=== PATIENT | female | born 1980 | race Two or more races ===

== ENCOUNTER 2019-07-09 08:50 | Outpatient (CLI) | payer BC ==
[2019-07-09] MEDS ORDERED: IOHEXOL-300 100 ML VIAL IV ONE (09:23)
[2019-07-09] MEDS ORDERED: CT SWABBABLE VALVE TRANS SET 1 EA INFUS.SET MC ONE (09:23)
[2019-07-09] MEDS ORDERED: IV NS 0.9% 250 ML IV ONE (09:23)
== END 2019-07-09 23:59 | disposition home or self-care (01) ==
LOC: CT 08:50
PROVIDERS: ATTEND Family Medicine
DX: N83.202 Unspecified ovarian cyst, left side (principal); M51.37 Other intervertebral disc degeneration, lumbosacral region
CPT/HCPCS: 74178; J7050; Q9967

== ENCOUNTER 2020-01-26 07:12 | Emergency (ER) | payer BC, OTHER ==
[~2020-01-26] VITALS: Ht 162.6 cm; Wt 77.1 kg
[2020-01-26 07:13] VITALS: BP 111/76
--- NOTE | 2020-01-26 07:20 | NUR ---
SEEN AND EXAMINED BY .
--- NOTE | 2020-01-26 07:50 | NUR ---
Patient discharged to home in stable condition. Written and verbal after care instructions given. Patient verbalizes understanding of instruction.
== END 2020-01-26 07:50 | disposition home or self-care (01) ==
LOC: ER 07:12
DX: B02.9 Zoster without complications (principal); G43.909 Migraine, unspecified, not intractable, without status migrainosus; Z98.890 Other specified postprocedural states

== ENCOUNTER 2020-02-03 01:36 | Emergency (ER) | payer BC, OTHER ==
[~2020-02-03] VITALS: Ht 162.6 cm; Wt 77.1 kg
[2020-02-03 01:42] VITALS: BP 131/75
== END 2020-02-03 02:55 | disposition home or self-care (01) ==
LOC: ER 01:39
DX: Z03.818 Encounter for observation for suspected exposure to other biological agents ruled out (principal)
CPT/HCPCS: 99283; U0003

== ENCOUNTER 2020-03-01 02:12 | Emergency (ER) | payer OTHER ==
[~2020-03-01] VITALS: Ht 162.6 cm; Wt 77.1 kg
[2020-03-01 02:20] VITALS: BP 138/88
== END 2020-03-01 02:48 | disposition home or self-care (01) ==
LOC: ER 02:14
DX: Z11.59 Encounter for screening for other viral diseases (principal)
CPT/HCPCS: 99283; C9803; U0003

== ENCOUNTER 2020-03-16 03:25 | Emergency (ER) | payer OTHER ==
[~2020-03-16] VITALS: Ht 162.6 cm; Wt 77.1 kg
[2020-03-16 03:39] VITALS: BP 132/79
--- NOTE | 2020-03-18 01:38 | NUR ---
PT COVID NEGATIVE
== END 2020-03-16 03:56 | disposition home or self-care (01) ==
LOC: ER 03:26
DX: Z03.818 Encounter for observation for suspected exposure to other biological agents ruled out (principal)
CPT/HCPCS: 99283; C9803; U0003

== ENCOUNTER 2020-03-22 23:03 | Emergency (ER) | payer OTHER ==
[~2020-03-22] VITALS: Ht 162.6 cm; Wt 77.1 kg
[2020-03-22 23:04] VITALS: BP 121/75
--- NOTE | 2020-03-22 23:22 | NUR ---
COVID SWAB SENT TO LAB
== END 2020-03-22 23:22 | disposition home or self-care (01) ==
LOC: ER 23:04
DX: Z11.59 Encounter for screening for other viral diseases (principal)
CPT/HCPCS: 99283; C9803; U0003

== ENCOUNTER 2020-03-30 00:21 | Emergency (ER) | payer OTHER ==
[~2020-03-30] VITALS: Ht 162.6 cm; Wt 77.1 kg
[2020-03-30 00:22] VITALS: BP 124/62
== END 2020-03-30 00:35 | disposition home or self-care (01) ==
LOC: ER 00:22
DX: Z03.818 Encounter for observation for suspected exposure to other biological agents ruled out (principal); Z86.69 Personal history of other diseases of the nervous system and sense organs
CPT/HCPCS: 99283; C9803; U0003

== ENCOUNTER 2020-04-06 00:53 | Emergency (ER) | payer OTHER ==
[~2020-04-06] VITALS: Ht 162.6 cm; Wt 77.1 kg
[2020-04-06 01:04] VITALS: BP 132/65
--- NOTE | 2020-04-06 01:07 | NUR ---
COVID SWAB COLLECTED AND SENT TO LAB
== END 2020-04-06 01:10 | disposition home or self-care (01) ==
LOC: ER 01:08
DX: Z03.818 Encounter for observation for suspected exposure to other biological agents ruled out (principal); Z86.69 Personal history of other diseases of the nervous system and sense organs
CPT/HCPCS: 99283; C9803; U0003

== ENCOUNTER 2020-04-13 00:33 | Emergency (ER) | payer OTHER ==
[~2020-04-13] VITALS: Ht 162.6 cm; Wt 77.1 kg
[2020-04-13 00:35] VITALS: BP 127/63
== END 2020-04-13 01:06 | disposition home or self-care (01) ==
LOC: ER 00:34
DX: Z20.828 Contact with and (suspected) exposure to other viral communicable diseases (principal)
CPT/HCPCS: 99283; C9803; U0003

== ENCOUNTER 2020-04-26 01:28 | Emergency (ER) | payer OTHER ==
[~2020-04-26] VITALS: Ht 162.6 cm; Wt 77.1 kg
[2020-04-26 01:29] VITALS: BP 132/63
--- NOTE | 2020-04-26 01:50 | NUR ---
COVID SWAB DONE AND SENT TO LAB.
== END 2020-04-26 01:50 | disposition home or self-care (01) ==
LOC: ER 01:30
DX: Z20.828 Contact with and (suspected) exposure to other viral communicable diseases (principal); Z86.69 Personal history of other diseases of the nervous system and sense organs
CPT/HCPCS: 99283; C9803; U0003

== ENCOUNTER 2020-05-25 02:25 | Emergency (ER) | payer OTHER | END 2020-05-25 02:53 | disposition home or self-care (01) | DX: Z20.828 Contact with and (suspected) exposure to other viral communicable diseases (principal) | CPT/HCPCS: 99283; C9803; U0003 ==

== ENCOUNTER 2020-06-01 01:35 | Emergency (ER) | payer OTHER ==
[~2020-06-01] VITALS: Ht 162.6 cm; Wt 77.1 kg
[2020-06-01 01:37] VITALS: BP 128/62
== END 2020-06-01 01:57 | disposition home or self-care (01) ==
LOC: ER 01:36
DX: Z20.828 Contact with and (suspected) exposure to other viral communicable diseases (principal); Z86.69 Personal history of other diseases of the nervous system and sense organs
CPT/HCPCS: 99283; C9803; U0003

== ENCOUNTER 2020-06-07 00:24 | Emergency (ER) | payer OTHER ==
[~2020-06-07] VITALS: Ht 162.6 cm; Wt 77.1 kg
[2020-06-07 00:29] VITALS: BP 124/63
== END 2020-06-07 01:28 | disposition home or self-care (01) ==
LOC: ER 00:31
DX: Z20.828 Contact with and (suspected) exposure to other viral communicable diseases (principal); Z86.69 Personal history of other diseases of the nervous system and sense organs
CPT/HCPCS: 99283; C9803; U0003

== ENCOUNTER 2020-07-04 23:08 | Emergency (ER) | payer OTHER ==
[~2020-07-04] VITALS: Ht 162.6 cm; Wt 77.1 kg
[2020-07-04 23:09] VITALS: BP 132/61
== END 2020-07-04 23:28 | disposition home or self-care (01) ==
LOC: ER 23:09
DX: Z20.828 Contact with and (suspected) exposure to other viral communicable diseases (principal); Z86.69 Personal history of other diseases of the nervous system and sense organs
CPT/HCPCS: 99283; C9803; U0003

== ENCOUNTER 2020-07-12 23:27 | Emergency (ER) | payer OTHER ==
[~2020-07-12] VITALS: Ht 167.6 cm; Wt 73.5 kg
[2020-07-12 23:30] VITALS: BP 131/72
== END 2020-07-13 00:03 | disposition home or self-care (01) ==
LOC: ER 23:28
DX: Z20.828 Contact with and (suspected) exposure to other viral communicable diseases (principal); Z86.69 Personal history of other diseases of the nervous system and sense organs
CPT/HCPCS: 99283; C9803; U0003

== ENCOUNTER 2020-07-19 01:13 | Emergency (ER) | payer OTHER ==
[~2020-07-19] VITALS: Ht 167.6 cm; Wt 73.5 kg
[2020-07-19 01:17] VITALS: BP 136/77
== END 2020-07-19 01:32 | disposition home or self-care (01) ==
LOC: ER 01:17
DX: Z20.828 Contact with and (suspected) exposure to other viral communicable diseases (principal); Z86.69 Personal history of other diseases of the nervous system and sense organs
CPT/HCPCS: 99283; C9803; U0003

== ENCOUNTER 2020-07-26 01:59 | Emergency (ER) | payer OTHER ==
[~2020-07-26] VITALS: Ht 167.6 cm; Wt 73.5 kg
[2020-07-26 02:00] VITALS: BP 124/62
== END 2020-07-26 02:31 | disposition home or self-care (01) ==
LOC: ER 02:00
DX: Z20.828 Contact with and (suspected) exposure to other viral communicable diseases (principal); Z86.69 Personal history of other diseases of the nervous system and sense organs
CPT/HCPCS: 99283; C9803; U0003

== ENCOUNTER 2020-08-02 00:14 | Emergency (ER) | payer OTHER ==
[~2020-08-02] VITALS: Ht 167.6 cm; Wt 73.5 kg
[2020-08-02 00:15] VITALS: BP 124/62
--- NOTE | 2020-08-02 00:18 | NUR ---
CALLED FOR COVID SWAB
== END 2020-08-02 01:10 | disposition home or self-care (01) ==
LOC: ER 00:15
DX: Z20.828 Contact with and (suspected) exposure to other viral communicable diseases (principal)
CPT/HCPCS: 99283; C9803; U0003

== ENCOUNTER 2020-08-09 00:52 | Emergency (ER) | payer OTHER ==
[~2020-08-09] VITALS: Ht 167.6 cm; Wt 73.5 kg
[2020-08-09 00:59] VITALS: BP 114/68
== END 2020-08-09 02:22 | disposition home or self-care (01) ==
LOC: ER 02:21
DX: U07.1 COVID-19 (principal); Z86.69 Personal history of other diseases of the nervous system and sense organs
CPT/HCPCS: 99283; C9803; U0003

== ENCOUNTER 2020-11-15 00:46 | Emergency (ER) | payer OTHER ==
[~2020-11-15] VITALS: Ht 167.6 cm; Wt 72.6 kg
[2020-11-15 00:47] VITALS: BP 132/65
== END 2020-11-15 01:44 | disposition home or self-care (01) ==
LOC: ER 00:49
DX: Z20.822 Contact with and (suspected) exposure to COVID-19 (principal); G43.909 Migraine, unspecified, not intractable, without status migrainosus
CPT/HCPCS: 99283; C9803; U0003

== ENCOUNTER 2020-11-22 01:25 | Emergency (ER) | payer OTHER ==
[~2020-11-22] VITALS: Ht 162.6 cm; Wt 77.1 kg
[2020-11-22 01:30] VITALS: BP 134/80
== END 2020-11-22 01:55 | disposition home or self-care (01) ==
LOC: ER 01:30
DX: Z20.822 Contact with and (suspected) exposure to COVID-19 (principal); Z86.69 Personal history of other diseases of the nervous system and sense organs
CPT/HCPCS: 99283; C9803; U0003

== ENCOUNTER 2020-11-29 01:50 | Emergency (ER) | payer OTHER ==
[~2020-11-29] VITALS: Ht 162.6 cm; Wt 77.1 kg
[2020-11-29 01:50] VITALS: BP 123/69
== END 2020-11-29 02:54 | disposition home or self-care (01) ==
LOC: ER 01:54
DX: Z20.822 Contact with and (suspected) exposure to COVID-19 (principal)
CPT/HCPCS: 99283; C9803; U0003

== ENCOUNTER 2020-12-06 01:04 | Emergency (ER) | payer OTHER ==
[~2020-12-06] VITALS: Ht 162.6 cm; Wt 77.1 kg
[2020-12-06 01:09] VITALS: BP 132/85
== END 2020-12-06 01:28 | disposition home or self-care (01) ==
LOC: ER 01:14
DX: Z20.822 Contact with and (suspected) exposure to COVID-19 (principal)
CPT/HCPCS: 99283; C9803; U0003

== ENCOUNTER 2020-12-13 01:20 | Emergency (ER) | payer OTHER ==
[~2020-12-13] VITALS: Ht 162.6 cm; Wt 77.1 kg
[2020-12-13 01:24] VITALS: BP 128/68
== END 2020-12-13 02:28 | disposition home or self-care (01) ==
LOC: ER 01:25
DX: Z20.822 Contact with and (suspected) exposure to COVID-19 (principal); G43.909 Migraine, unspecified, not intractable, without status migrainosus
CPT/HCPCS: 99283; C9803; U0003

== ENCOUNTER 2020-12-21 03:43 | Emergency (ER) | payer OTHER ==
[~2020-12-21] VITALS: Ht 162.6 cm; Wt 77.1 kg
[2020-12-21 04:01] VITALS: BP 128/67
== END 2020-12-21 04:09 | disposition home or self-care (01) ==
LOC: ER 03:47
DX: Z20.822 Contact with and (suspected) exposure to COVID-19 (principal)
CPT/HCPCS: 99283; C9803; U0003

== ENCOUNTER 2020-12-27 00:56 | Emergency (ER) | payer OTHER ==
[~2020-12-27] VITALS: Ht 162.6 cm; Wt 77.1 kg
[2020-12-27 00:57] VITALS: BP 125/64
== END 2020-12-27 01:34 | disposition home or self-care (01) ==
LOC: ER 00:57
DX: Z20.822 Contact with and (suspected) exposure to COVID-19 (principal)
CPT/HCPCS: 99283; C9803; U0003

== ENCOUNTER 2021-01-03 02:08 | Emergency (ER) | payer OTHER ==
[~2021-01-03] VITALS: Ht 162.6 cm; Wt 77.1 kg
[2021-01-03 02:10] VITALS: BP 128/85
== END 2021-01-03 03:56 | disposition home or self-care (01) ==
LOC: ER 02:12
DX: Z20.822 Contact with and (suspected) exposure to COVID-19 (principal)
CPT/HCPCS: 99283; C9803; U0003

== ENCOUNTER 2021-01-10 02:35 | Emergency (ER) | payer OTHER ==
[~2021-01-10] VITALS: Ht 170.2 cm; Wt 77.1 kg
[2021-01-10 02:46] VITALS: BP 124/68
== END 2021-01-10 03:17 | disposition home or self-care (01) ==
LOC: ER 02:38
DX: Z20.822 Contact with and (suspected) exposure to COVID-19 (principal); Z86.69 Personal history of other diseases of the nervous system and sense organs
CPT/HCPCS: 99283; C9803; U0003

== ENCOUNTER 2021-01-17 01:38 | Emergency (ER) | payer OTHER ==
[~2021-01-17] VITALS: Ht 170.2 cm; Wt 76.2 kg
[2021-01-17 01:46] VITALS: BP 113/72
== END 2021-01-17 01:56 | disposition home or self-care (01) ==
LOC: ER 01:42
DX: Z20.822 Contact with and (suspected) exposure to COVID-19 (principal); Z86.69 Personal history of other diseases of the nervous system and sense organs
CPT/HCPCS: 99283; C9803; U0003

== ENCOUNTER 2021-01-24 03:35 | Emergency (ER) | payer OTHER ==
[~2021-01-24] VITALS: Ht 170.2 cm; Wt 76.2 kg
[2021-01-24 03:38] VITALS: BP 117/66
== END 2021-01-24 04:11 | disposition home or self-care (01) ==
LOC: ER 03:38
DX: Z20.822 Contact with and (suspected) exposure to COVID-19 (principal); Z86.69 Personal history of other diseases of the nervous system and sense organs
CPT/HCPCS: 99283; C9803; U0003

== ENCOUNTER 2021-01-30 03:23 | Emergency (ER) | payer OTHER ==
[~2021-01-30] VITALS: Ht 170.2 cm; Wt 76.2 kg
[2021-01-30 03:38] VITALS: BP 131/84
== END 2021-01-30 03:55 | disposition home or self-care (01) ==
LOC: ER 03:26
DX: Z20.822 Contact with and (suspected) exposure to COVID-19 (principal)
CPT/HCPCS: 99283; C9803; U0003

== ENCOUNTER 2021-02-07 00:11 | Emergency (ER) | payer OTHER ==
[~2021-02-07] VITALS: Ht 170.2 cm; Wt 76.2 kg
[2021-02-07 00:22] VITALS: BP 116/66
== END 2021-02-07 00:26 | disposition home or self-care (01) ==
LOC: ER 00:13
DX: Z20.822 Contact with and (suspected) exposure to COVID-19 (principal); Z86.69 Personal history of other diseases of the nervous system and sense organs
CPT/HCPCS: 99283; C9803; U0003

== ENCOUNTER 2021-02-14 03:43 | Emergency (ER) | payer OTHER ==
[~2021-02-14] VITALS: Ht 170.2 cm; Wt 76.2 kg
[2021-02-14 03:45] VITALS: BP 125/64
== END 2021-02-14 04:19 | disposition home or self-care (01) ==
LOC: ER 03:45
DX: Z20.822 Contact with and (suspected) exposure to COVID-19 (principal); Z86.69 Personal history of other diseases of the nervous system and sense organs
CPT/HCPCS: 99283; C9803; U0003

== ENCOUNTER 2021-02-28 00:27 | Emergency (ER) | payer OTHER ==
[~2021-02-28] VITALS: Ht 160 cm; Wt 77.1 kg
[2021-02-28 00:30] VITALS: BP 128/77
== END 2021-02-28 00:57 | disposition home or self-care (01) ==
LOC: ER 00:28
DX: Z20.822 Contact with and (suspected) exposure to COVID-19 (principal)
CPT/HCPCS: 99283; C9803; U0003

== ENCOUNTER 2021-03-08 05:35 | Emergency (ER) | payer OTHER ==
[~2021-03-08] VITALS: Ht 160 cm; Wt 77.1 kg
[2021-03-08 05:36] VITALS: BP 128/85
== END 2021-03-08 05:45 | disposition home or self-care (01) ==
LOC: ER 05:37
DX: Z20.822 Contact with and (suspected) exposure to COVID-19 (principal)
CPT/HCPCS: 99283; C9803; U0003

== ENCOUNTER 2021-03-14 01:41 | Emergency (ER) | payer OTHER ==
[~2021-03-14] VITALS: Ht 160 cm; Wt 77.1 kg
[2021-03-14 01:41] VITALS: BP 121/65
== END 2021-03-14 02:03 | disposition home or self-care (01) ==
LOC: ER 01:44
DX: Z20.822 Contact with and (suspected) exposure to COVID-19 (principal)
CPT/HCPCS: 99283; C9803; U0003

== ENCOUNTER 2021-03-26 23:27 | Emergency (ER) | payer OTHER ==
[~2021-03-26] VITALS: Ht 160 cm; Wt 77.1 kg
[2021-03-26 23:33] VITALS: BP 125/69
== END 2021-03-27 00:05 | disposition home or self-care (01) ==
LOC: ER 23:28
DX: Z20.822 Contact with and (suspected) exposure to COVID-19 (principal)
CPT/HCPCS: 99283; C9803; U0003

== ENCOUNTER 2021-03-29 01:23 | Emergency (ER) | payer OTHER ==
[~2021-03-29] VITALS: Ht 160 cm; Wt 77.1 kg
[2021-03-29 01:25] VITALS: BP 128/85
== END 2021-03-29 01:34 | disposition home or self-care (01) ==
LOC: ER 01:25
DX: Z20.822 Contact with and (suspected) exposure to COVID-19 (principal); Z86.69 Personal history of other diseases of the nervous system and sense organs
CPT/HCPCS: 99283; C9803; U0003

== ENCOUNTER 2021-04-03 23:56 | Emergency (ER) | payer OTHER ==
[~2021-04-03] VITALS: Ht 160 cm; Wt 77.1 kg
[2021-04-03 23:59] VITALS: BP 118/68
== END 2021-04-04 00:11 | disposition home or self-care (01) ==
LOC: ER 23:57
DX: Z20.822 Contact with and (suspected) exposure to COVID-19 (principal); Z86.69 Personal history of other diseases of the nervous system and sense organs
CPT/HCPCS: 99283; C9803; U0003

== ENCOUNTER 2021-04-05 02:12 | Emergency (ER) | payer OTHER ==
[~2021-04-05] VITALS: Ht 160 cm; Wt 77.1 kg
[2021-04-05 02:18] VITALS: BP 127/68
== END 2021-04-05 02:50 | disposition home or self-care (01) ==
LOC: ER 02:14
DX: Z20.822 Contact with and (suspected) exposure to COVID-19 (principal)
CPT/HCPCS: 99283; C9803; U0003

== ENCOUNTER 2021-04-09 23:36 | Emergency (ER) | payer OTHER ==
[~2021-04-09] VITALS: Ht 160 cm; Wt 77.1 kg
[2021-04-09 23:36] VITALS: BP 122/75
== END 2021-04-10 00:27 | disposition home or self-care (01) ==
LOC: ER 23:38
DX: Z20.822 Contact with and (suspected) exposure to COVID-19 (principal); Z86.69 Personal history of other diseases of the nervous system and sense organs
CPT/HCPCS: 99283; C9803; U0003

== ENCOUNTER 2021-04-11 22:56 | Emergency (ER) | payer OTHER ==
[~2021-04-11] VITALS: Ht 160 cm; Wt 77.1 kg
[2021-04-11 22:56] VITALS: BP 122/60
== END 2021-04-11 23:48 | disposition home or self-care (01) ==
LOC: ER 22:58
DX: Z20.822 Contact with and (suspected) exposure to COVID-19 (principal)
CPT/HCPCS: 99283; C9803; U0003

== ENCOUNTER 2021-04-16 21:55 | Emergency (ER) | payer OTHER ==
[~2021-04-16] VITALS: Ht 160 cm; Wt 77.1 kg
[2021-04-16 21:59] VITALS: BP 132/64
== END 2021-04-16 22:27 | disposition home or self-care (01) ==
LOC: ER 21:56
DX: Z20.822 Contact with and (suspected) exposure to COVID-19 (principal); Z86.69 Personal history of other diseases of the nervous system and sense organs
CPT/HCPCS: 99283; C9803; U0003

== ENCOUNTER 2021-04-18 23:33 | Emergency (ER) | payer BC, OTHER ==
[~2021-04-18] VITALS: Ht 162.6 cm; Wt 68.0 kg
[2021-04-18 23:37] VITALS: BP 133/85
== END 2021-04-18 23:58 | disposition home or self-care (01) ==
LOC: ER 23:37
DX: Z20.822 Contact with and (suspected) exposure to COVID-19 (principal)
CPT/HCPCS: 99283; C9803; U0003

== ENCOUNTER 2021-04-23 22:13 | Emergency (ER) | payer OTHER ==
[~2021-04-23] VITALS: Ht 162.6 cm; Wt 68.0 kg
[2021-04-23 22:13] VITALS: BP 123/60
== END 2021-04-23 23:10 | disposition home or self-care (01) ==
LOC: ER 22:15
DX: Z20.822 Contact with and (suspected) exposure to COVID-19 (principal)
CPT/HCPCS: 99283; C9803; U0003

== ENCOUNTER 2021-04-26 00:42 | Emergency (ER) | payer OTHER ==
[~2021-04-26] VITALS: Ht 162.6 cm; Wt 68.0 kg
[2021-04-26 00:45] VITALS: BP 132/61
== END 2021-04-26 01:03 | disposition home or self-care (01) ==
LOC: ER 00:43
DX: Z20.822 Contact with and (suspected) exposure to COVID-19 (principal); Z86.69 Personal history of other diseases of the nervous system and sense organs
CPT/HCPCS: 99283; C9803; U0003

== ENCOUNTER 2021-05-01 01:00 | Emergency (ER) | payer OTHER ==
[~2021-05-01] VITALS: Ht 162.6 cm; Wt 68.0 kg
[2021-05-01 01:00] VITALS: BP 128/85
== END 2021-05-01 01:22 | disposition home or self-care (01) ==
LOC: ER 01:01
DX: Z20.822 Contact with and (suspected) exposure to COVID-19 (principal); Z86.69 Personal history of other diseases of the nervous system and sense organs
CPT/HCPCS: 99283; C9803; U0003

== ENCOUNTER 2021-05-03 00:39 | Emergency (ER) | payer OTHER ==
[~2021-05-03] VITALS: Ht 162.6 cm; Wt 68.0 kg
[2021-05-03 00:39] VITALS: BP 123/75
== END 2021-05-03 01:51 | disposition home or self-care (01) ==
LOC: ER 00:39
DX: Z20.822 Contact with and (suspected) exposure to COVID-19 (principal); Z86.69 Personal history of other diseases of the nervous system and sense organs
CPT/HCPCS: 99283; C9803; U0003

== ENCOUNTER 2021-05-08 00:27 | Emergency (ER) | payer OTHER ==
[~2021-05-08] VITALS: Ht 160 cm; Wt 77.1 kg
[2021-05-08 00:31] VITALS: BP 128/85
== END 2021-05-08 01:15 | disposition home or self-care (01) ==
LOC: ER 00:28
DX: Z20.822 Contact with and (suspected) exposure to COVID-19 (principal)
CPT/HCPCS: 99283; C9803; U0003

== ENCOUNTER 2021-05-10 00:19 | Emergency (ER) | payer OTHER ==
[~2021-05-10] VITALS: Ht 170.2 cm; Wt 59.0 kg
[2021-05-10 00:46] VITALS: BP 135/80
== END 2021-05-10 01:00 | disposition home or self-care (01) ==
LOC: ER 00:21
DX: Z20.822 Contact with and (suspected) exposure to COVID-19 (principal)
CPT/HCPCS: 99283; C9803; U0003

== ENCOUNTER 2021-05-14 22:56 | Emergency (ER) | payer OTHER ==
[~2021-05-14] VITALS: Ht 162.6 cm; Wt 59.0 kg
[2021-05-14 23:00] VITALS: BP 111/63
== END 2021-05-14 23:32 | disposition home or self-care (01) ==
LOC: ER 22:57
DX: Z20.822 Contact with and (suspected) exposure to COVID-19 (principal); Z86.69 Personal history of other diseases of the nervous system and sense organs
CPT/HCPCS: 99283; C9803; U0003

== ENCOUNTER 2021-05-15 22:42 | Emergency (ER) | payer OTHER ==
[~2021-05-15] VITALS: Ht 162.6 cm; Wt 59.0 kg
[2021-05-15 22:50] VITALS: BP 131/85
== END 2021-05-15 23:51 | disposition home or self-care (01) ==
LOC: ER 22:43
DX: Z20.822 Contact with and (suspected) exposure to COVID-19 (principal); Z86.69 Personal history of other diseases of the nervous system and sense organs
CPT/HCPCS: 99283; C9803; U0003

== ENCOUNTER 2021-05-22 01:58 | Emergency (ER) | payer OTHER ==
[~2021-05-22] VITALS: Ht 162.6 cm; Wt 68.0 kg
[2021-05-22 02:06] VITALS: BP 122/71
== END 2021-05-22 02:21 | disposition home or self-care (01) ==
LOC: ER 02:03
DX: Z20.822 Contact with and (suspected) exposure to COVID-19 (principal); Z86.69 Personal history of other diseases of the nervous system and sense organs
CPT/HCPCS: 99283; U0003; C9803

== ENCOUNTER 2021-08-21 00:44 | Emergency (ER) | payer OTHER ==
[~2021-08-21] VITALS: Ht 170.2 cm; Wt 56.7 kg
[2021-08-21 00:43] VITALS: BP 115/71
== END 2021-08-21 01:34 | disposition home or self-care (01) ==
LOC: ER 00:44
DX: Z20.822 Contact with and (suspected) exposure to COVID-19 (principal)
CPT/HCPCS: 99283; C9803; U0003

== ENCOUNTER 2021-09-20 04:46 | Emergency (ER) | payer OTHER ==
[~2021-09-20] VITALS: Ht 162.6 cm; Wt 77.1 kg
[2021-09-20 04:48] VITALS: BP 133/84
== END 2021-09-20 05:14 | disposition home or self-care (01) ==
LOC: ER 04:48
DX: U07.1 COVID-19 (principal); G43.909 Migraine, unspecified, not intractable, without status migrainosus; Z98.890 Other specified postprocedural states
CPT/HCPCS: 99283; C9803; U0003

== ENCOUNTER 2022-12-05 08:00 | Outpatient (CLI) | payer BC | END 2022-12-05 23:59 | disposition home or self-care (01) | LOC: RAD 08:00 | PROVIDERS: ATTEND Family Medicine | DX: M25.561 Pain in right knee (principal); M79.671 Pain in right foot | CPT/HCPCS: 73564-TC; 73630-TC ==

== ENCOUNTER 2024-03-23 01:02 | Emergency (ER) | payer BC, OTHER ==
[~2024-03-23] VITALS: Ht 162.6 cm; Wt 72.6 kg
[2024-03-23 04:33] VITALS: BP 142/92; TEMP 98; O2SAT 98
== END 2024-03-23 04:40 | disposition home or self-care (01) ==
LOC: ER 01:05
DX: S82.54XA Nondisplaced fracture of medial malleolus of right tibia, initial encounter for closed fracture (principal); S80.11XA Contusion of right lower leg, initial encounter; G43.909 Migraine, unspecified, not intractable, without status migrainosus; X58.XXXA Exposure to other specified factors, initial encounter; Y93.66 Activity, soccer; Y92.89 Other specified places as the place of occurrence of the external cause; Y99.8 Other external cause status
CPT/HCPCS: 73610-TC; 73630-TC